=== PATIENT | male | born 1955 | race Caucasian/White ===

== ENCOUNTER 2016-10-29 07:06 | Inpatient (IN) | payer BC ==
--- NOTE | ~2016-10-29 | DS ---
Unit #: [id number] #: [id number] Patient: NILSON HALEY [id number] [address] [place], [place] [address] [id number] MR#: [id number] NAME: NILSON HALEY ROOM: 55 Age: 61 Sex: M Admission Date: 10/29/2016 : 1955 Discharge Date: 10/29/2016 Attending Physician: Lefty Kapoor M.D. Primary Care Physician: Nilson Haley M.D. 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 His course after the PCI six weeks ago was complicated by symptoms of weakness, muscle aches and pains, shortness of breath which was thought to be secondary to Brilinta and that drug was discontinued and patient started on Plavix which he had tolerated before. He was doing reasonably well. He has been active. He has been working on a regular basis. Two or three days ago in the middle of the day he had sudden onset of low retrosternal pain described as pressure and heaviness which lasted for about 5-10 minutes and was spontaneously relieved. Early this morning about 3 a.m., he was awakened from sleep with severe low retrosternal chest discomfort without any radiation to the neck, jaw, back and there was no associated diaphoresis, dyspnea, nausea, vomiting. He took one sublingual nitroglycerin without any relief and five minutes later took a second sublingual nitroglycerin and 20 minutes after the dose of nitroglycerin his pain subsided. He came to the emergency room where examination revealed no evidence of congestive heart failure. Blood pressure was normal. Electrocardiogram and cardiac enzymes showed no evidence of an evolving MS. Because of the possibility of subacute stent thrombosis or worsening of stenosis in the mid right coronary artery, he was advised to consider cardiac catheterization. While waiting for the cardiac catheterization, he had another episode of chest discomfort which prompted me to start him on intravenous nitroglycerin and he was given morphine sulfate along with Phenergan to relieve the pain. He was taken to the cardiac catheterization lab in a semi-emergent state and cardiac catheterization revealed left coronary artery and left anterior descending artery were normal. Left circumflex is a co-dominant vessel and the circumflex trunk was normal. First marginal branch was normal. Second marginal branch shows presence of two stents which are widely patent with OMID-3 distal flow and the posterior marginal branch was normal. Right coronary artery proximal half was normal and mid section revealed about 60% stenosis with mild haziness very similar to what he had six weeks ago. Because of recurrent chest pain, I performed FFR using the RADI wire and following intravenous adenosine with dilatation, FFR was 0.91. Possibility of a penetrating aortic ulcer was considered and patient had undergone CT angiography of the chest about six weeks ago and there was no abnormality detected and hence CT angiography was not repeated. Patient had no complications of cardiac catheterization. His right groin is well healed. There is no hematoma or bruit. I discussed the possible options with Dr. Haley and it was my opinion that he should be empirically treated for possible gastroesophageal reflux Unit #: [id number] #: [id number] Patient: LEANNNILSON T D disease because both the episodes of chest pain in the last week or so occurred either after a cup of black coffee or after alcoholic beverage the night before. He will be started on Protonix 40 mg daily at bedtime. Also because of the possibility of coronary or esophageal vasospasm cannot be excluded, patient will be started on amlodipine 5 mg daily at bedtime. He is again advised to try sublingual nitroglycerin if the pains continue. I will follow up with Dr. Haley in the office in four to six weeks. FINAL DIAGNOSES 1. Chest pain, cannot rule out esophageal spasm or coronary artery vasospasm. 2. Patent stents in second marginal branch of circumflex. 3. Right coronary artery 60% stenosis, had fractional flow reserve of 0.91. 4. Hyperlipidemia. 5. Hypertension. 6. Last ejection fraction 55% to 65%. MEDICATIONS His home medicines would include: 1. Amlodipine 5 mg p.o. at bedtime. 2. Protonix 40 mg p.o. at bedtime. 3. Sublingual nitroglycerin 0.4 mg p.r.n. for chest pain. 4. Benicar 10 mg daily. 5. Lexapro 20 mg daily. 6. Lorazepam 1 mg at bedtime. 7. Coreg 3.125 b.i.d. 8. Pravastatin 80 mg daily. 9. Vascepa 2 g p.o. b.i.d. 10. Multivitamins. 11. Aspirin 81 daily. 12. Plavix 75 mg daily. FOLLOWUP I will see him back in the office in six to eight weeks. Dictated by... Maggy Castellon TD: 10/30/2016 14:49 JOB #: [id number] DISCHARGE SUMMARY Page 1 of 1 X Lefty Kapoor MD X DISCHARGE SUMMARY
--- NOTE | ~2016-10-29 | EKG ---
PATIENT: NILSON NORIEGA UNIT #: [id number] Ventricular Rate: 72 BPM Atrial Rate: 72 BPM P-R Interval: 172 ms QRS Duration: 82 ms Q-T Interval: 382 ms QTC Calculation(Bezet): 418 ms P [place]: 31 degrees Calculated R [place]: 33 degrees Calculated T [place]: 27 degrees Diagnosis Line: Normal sinus rhythm Diagnosis Line: Normal ECG Diagnosis Line: When compared with ECG of 29-OCT-2016 04:00, Diagnosis Line: (unconfirmed) Diagnosis Line: No significant change was found Diagnosis Line: Confirmed by SHIRA DOUGLASS MD ([id number]) on 10/31/2016 Diagnosis Line: 8:28:25 PM INTERPRETING MD: RAFAT POWELL
--- NOTE | ~2016-10-29 | EKG ---
PATIENT: NILSON NORIEGA UNIT #: [id number] Ventricular Rate: 76 BPM Atrial Rate: 76 BPM P-R Interval: 174 ms QRS Duration: 82 ms Q-T Interval: 380 ms QTC Calculation(Bezet): 427 ms P [place]: 40 degrees Calculated R [place]: 39 degrees Calculated T [place]: 45 degrees Diagnosis Line: Normal sinus rhythm Diagnosis Line: Normal ECG Diagnosis Line: When compared with ECG of 29-OCT-2016 07:38, Diagnosis Line: (unconfirmed) Diagnosis Line: Previous ECG has undetermined rhythm, needs review Diagnosis Line: Confirmed by SHIRA DOUGLASS MD ([id number]) on 10/31/2016 Diagnosis Line: 8:28:54 PM INTERPRETING MD: RAFAT POWELL
--- NOTE | ~2016-10-29 | EKG ---
PATIENT: NILSON NORIEGA UNIT #: [id number] Ventricular Rate: 70 BPM Atrial Rate: 70 BPM P-R Interval: 152 ms QRS Duration: 78 ms Q-T Interval: 406 ms QTC Calculation(Bezet): 438 ms P [place]: 10 degrees Calculated R [place]: 23 degrees Calculated T [place]: 26 degrees Diagnosis Line: Normal sinus rhythm Diagnosis Line: Normal ECG Diagnosis Line: When compared with ECG of 08-SEP-2009 08:48, Diagnosis Line: No significant change was found Diagnosis Line: Confirmed by SHIRA DOUGLASS MD ([id number]) on 10/31/2016 Diagnosis Line: 8:27:48 PM INTERPRETING MD: RAFAT POWELL
--- NOTE | ~2016-10-29 | HP ---
Unit #: [id number] #: [id number] Patient: NILSON HALEY [id number] [address] [place], [place] [address] [id number] MR#: [id number] NAME: NILSON HALEY ROOM: 554 Age: 61 Sex: M Admission Date: 10/29/2016 : 1955 Attending Physician: Lefty Kapoor M.D. Primary Care Physician: Nilson Haley M.D. 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 He also had a 70% stenosis in the RCA. FFR was obtained, it was 0.94, it was recommended medical management. He also has hypertension, hyperlipidemia, intolerant to Brilinta, recently told he has some gallstones. He presented to the emergency room with left anterior chest wall pain. He said it felt similar to his previous angina. He took a sublingual nitroglycerin. It woke him up about 2:45 a.m. from sleep. He said the first nitroglycerin eased it off a little bit but then ended up taking a second one after about 20 minutes. He denies any diaphoresis, palpitations, dizziness. He denied that the chest pain radiated up into his neck, bilateral jaw, shoulders, arms or elbows. No abdominal or back pain. No recent cough, fever or chills. He proceeded to the emergency room due to having the recent stent and feeling that it was similar to the pain he has had before. By the time he made it to the emergency room, he said the pain had essentially eased off. In the emergency room, the patient's blood pressure was 128/73, heart rate 78, respirations 18, temperature 98.0, O2 saturation 96% on room air. His EKG did not show anything acute. His initial cardiac enzymes are negative. Patient was given an aspirin [address] Kapoor has admitted the patient for further evaluation and management. PAST MEDICAL HISTORY 1. 2010: [id number] myocardial infarction, status post PCI and stent to the obtuse marginal 2 of the circumflex. 2. 09/20/2016: Cardiac catheterization shows two-vessel coronary artery disease. Patent stent in the second marginal branch of the circumflex. He another stent placed in the distal portion of the second marginal branch. Also found 70% stenosis in the RCA. The FFR was 0.94. Medical management. LVEF of 55% to 60% per cardiac cath 09/20/2016. 3. Hypertension. 4. Hyperlipidemia. 5. Intolerant to Brilinta. 6. Intolerant to statins, is on Repatha. 7. Nonsmoker. PAST SURGICAL HISTORY 1. Status post PCI and stent x2 in the second obtuse marginal of the Unit #: [id number] #: [id number] Patient: NILSON HALEY left circumflex. 2. Tonsillectomy. HOME MEDICATIONS 1. Lexapro 20 mg p.o. daily. 2. Lorazepam 1 mg p.o. h.s. 3. Benicar 10 mg p.o. daily. 4. Plavix 75 mg p.o. daily. 5. Pravastatin 80 mg p.o. daily. 6. Repatha as directed. 7. Vascepa 2 grams p.o. b.i.d. 8. Multivitamin one tablet daily. 9. Aspirin 81 mg p.o. daily. 10. Carvedilol 3.125 mg p.o. b.i.d. ALLERGIES 1. Sulfonamides. 2. Ticagrelor. 3. Brilinta. SOCIAL HISTORY No tobacco, alcohol, or illicit drug abuse. FAMILY HISTORY Father had coronary artery disease. REVIEW OF SYSTEMS CONSTITUTIONAL: Denies fever or chills. No recent weight gain or weight loss. HEENT: Denies headache or dizziness. No vision or hearing changes. No lymphadenopathy, thyromegaly, or difficulty swallowing. CARDIOVASCULAR: Chest pain present. Denies palpitations. Denies increased lower extremity edema. PULMONARY: Denies shortness of breath. Denies paroxysmal nocturnal dyspnea or orthopnea. GASTROINTESTINAL: Denies nausea, vomiting, diarrhea or abdominal pain. NEUROLOGIC: No focal weaknesses. PHYSICAL EXAMINATION VITAL SIGNS: Blood pressure 121/72, heart rate 68, respirations 16, temperature 98.0, O2 saturations 99% on room air. GENERAL: Mr. Haley is a 61-year-old white male in no acute respiratory distress. He is awake, alert, and oriented. NECK: Trachea midline. No thyromegaly, lymphadenopathy. Normal carotid upstrokes. No jugular venous distention. HEART: S1, S2. Regular rate and rhythm. No clicks, murmurs, or rubs. LUNGS: Bilaterally clear throughout. No wheezes, rales, or rhonchi. ABDOMEN: Soft, nontender. Positive bowel sounds are present. No hepatosplenomegaly. EXTREMITIES: Pedal pulses are palpable. No pedal edema. DIAGNOSTIC STUDIES LABORATORY: Glucose 102, BUN 16, creatinine 1.1, EGFR is 71.6, sodium 139, potassium 3.4, chloride 105, CO2 is 27, calcium 8.7, total protein 6.8, albumin 4.3, total bilirubin 0.8, AST 238, ALT 117, alkaline phosphatase 61. WBC 6.8, hemoglobin 13.6, hematocrit 40.2, platelets 211. Initial cardiac enzymes CKMB less than 1.0, troponin less than 0.05; CKMB less than 1.0, troponin less than 0.05. INR 1.0. Unit #: [id number] #: [id number] Patient: NILSON HALEY IMAGING: Chest x-ray shows nothing acute, normal. CARDIOVASCULAR: EKG shows normal sinus rhythm with ventricular rate 70 beats per minute. Q waves in V1 and and probably lead III. Low voltage in the inferior leads. IMPRESSION 1. Chest pain, unstable angina. 2. History of coronary artery disease, recent PCI and stent to the second marginal branch distal portion on 09/20/2016. 3. Hypertension. 4. Hyperlipidemia. 5. Intolerant to Brilinta. 6. Intolerant to statin on Repatha outpatient. 7. Nonsmoker. 8. Hypokalemia. 9. Elevated liver function tests. 10. Recently diagnosed with gallbladder disease with gallstones. PLAN 1. Dr. Kapoor examined and evaluated the patient. With his symptoms suggestive of unstable angina and his history of having coronary artery disease and had a stenosis in the RCA that was not stented, he feels he should have a heart catheterization to further evaluate. 2. Dr. Kapoor ordered the patient to get 5000 units of heparin IV along with aspirin 325. The patient had recurrent pain while he was in the emergency room and had to be started on nitroglycerin drip per protocol to titrate for chest pain. 3. Dr. Kapoor added potassium to his IV fluids. 4. Patient also was ordered to get a Plavix before his procedure. 5. Further recommendations pending per Dr. Kapoor after his heart catheterization. 6. On exam, there is no signs or symptoms of acute congestive heart failure. 7. Dr. Kapoor wants the CT angio of his chest report from [facility] that was done 6 weeks ago to be made available. Dictated by Elizabeth Peters A.P.R.N. for Lefty Kapoor M.D. RHIANNON/shama TD: 10/29/2016 17:04 JOB #: [id number] Unit #: [id number] #: [id number] Patient: NILSON HALEY Juan Carlos Kaufman HISTORY AND PHYSICAL Page 1 of 1 X Elizabeth Peters APRN HISTORY AND PHYSICAL
--- NOTE | ~2016-10-29 | EKG ---
PATIENT: NILSON NORIEGA UNIT #: [id number] Ventricular Rate: 63 BPM Atrial Rate: 63 BPM P-R Interval: 174 ms QRS Duration: 80 ms Q-T Interval: 398 ms QTC Calculation(Bezet): 407 ms P [place]: 33 degrees Calculated R [place]: 38 degrees Calculated T [place]: 30 degrees Diagnosis Line: Normal sinus rhythm Diagnosis Line: Normal ECG Diagnosis Line: When compared with ECG of 29-OCT-2016 08:22, Diagnosis Line: (unconfirmed) Diagnosis Line: No significant change was found Diagnosis Line: Confirmed by SHIRA DOUGLASS MD ([id number]) on 10/31/2016 Diagnosis Line: 8:30:17 PM INTERPRETING MD: RAFAT POWELL
--- NOTE | ~2016-10-29 | CR72 ---
[facility] A Service of [facility] RADIOLOGY TEXT RESULTS PATIENT: NILSON HALEY LOCATION: [place] [address] : [birth year] UNIT #: [id number] AGE: [address]: Lefty Kapoor MD SEX: M ORDER DR: [id number] [facility] [address]. [place], [place] [address] [id number] E MR#: [id number] Acc #: [id number] NAME: NILSON HALEY : 1955 SEX: M STUDY DATE/TIME: 10/29/2016 4:52 UNIT: DANDY ROOM: STUDY DESCRIPTION: CR Chest Single View Portable Attending Physician: Cl Sanchez M.D. Ordering Physician: Cl Sanchez M.D. Primary Care Physician: Nilson Haely M.D. MEDICAL IMAGING REPORT This report is preliminary unless electronic signature is present EXAM AP portable chest date 10/29/2016 HISTORY Onset chest pain today. COMPARISON AP portable chest 09/08/2009. FINDINGS A single AP portable view of the chest shows both lungs to be clear. The heart is normal in size. The mediastinal contour is normal. No significant bone abnormalities are seen. IMPRESSION Normal portable chest. Dictated by... Mimi Taylor M.D. THIS IS AN ELECTRONICALLY VERIFIED REPORT Mimi Taylor M.D. at 11/03/2016 4:12 PM Remy/vasu TD: 10/29/2016 09:20 JOB #: [id number] MEDICAL IMAGING REPORT Page 1 of 1 COPY
[2016-10-29 04:39] LABS: POC - CKMB <1.0 ng/mL (0.0-7.9); POC - TROPONIN <0.05 ng/mL (<=0.05)
[2016-10-29 05:09] LABS: BASOPHIL% 0.6 % (0-2.5); DIFF IND NO; EOSINOPHIL# 0.3 X10e3 (0-0.7); EOSINOPHIL% 4.2 % (0.0-7.0); HEMATOCRIT 40.2 % (38.0-50.0); HEMOGLOBIN 13.6 gm/dL (13.0-16.0); LYMPHOCYTE# 2.1 X10e3 (1.0-3.5); LYMPHOCYTE% 30.8 % (17.0-45.0); MEAN CELL VOLUME 94.6 FL (83-96); MEAN CORPUSCULAR HGB CONC 33.9 g/dL (30-36); MEAN PLATELET VOLUME 8.5 FL (6.5-11.5); MONOCYTE# 0.5 X10e3 (0-1.0); MONOCYTE% 7.1 % (3.0-12.0); NEUTROPHIL# 3.9 X10e3 (1.5-7.1); NEUTROPHIL% 57.3 % (40-75); PLATELET COUNT 211 X10e3 (140-420); RED BLOOD COUNT 4.25 X10e (3.90-5.60); WHITE BLOOD COUNT 6.8 X10e3 (4.0-10.5)
[2016-10-29 05:24] LABS: PARTIAL THROMBOPLASTIN TIME 23.9 SECONDS (23.5-31.3)
[2016-10-29 05:42] LABS: ALBUMIN SERUM 4.3 g/dL (3.5-5.0); BILIRUBIN, DIRECT 0.3 mg/dL (0.0-0.2); BILIRUBIN,INDIRECT 0.5 mg/dL (0.0-0.9); BILIRUBIN,TOTAL 0.8 mg/dL (0.2-2.0); BUN/CREATININE RATIO 14.54; CALCIUM SERUM 8.7 mg/dL (8.4-10.2); CREATININE SERUM 1.1 mg/dL (0.6-1.4); GLOM FILT RATE Estimated 71.6 mL/min (>60); POTASSIUM 3.4 mmol/L (3.5-5.1); PROTEIN TOTAL SERUM 6.8 g/dL (6.0-8.3)
[2016-10-29 06:31] LABS: POC - CKMB <1.0 ng/mL (0.0-7.9); POC - TROPONIN <0.05 ng/mL (<=0.05)
[~2016-10-29 07:06] MED LIST: ASPIRIN PO; ASPIRIN81 M2 PO; ATIVAN PO; BENICAR20 MG PO; CERTAGEN; COLACE PO; COREG3.125 MG PO; LEXAPRO PO; MULTIVITAMINS1 EAC3; PHENERGAN PO; PLAVIX300 MG PO; PRAVASTATIN SOD80 MG PO; PROCTOCORT PR; REPATHA SY140 MG/1 M; VASCEPA1 GM PO
[2016-10-29] MEDS ORDERED: PROTONIX PO (17:19)
[2016-10-29] MEDS ORDERED: AMLODIPINE BESYL5 MG PO (17:22)
== END 2016-10-29 18:02 | disposition home or self-care (01) | DRG 287 ==
LOC: CED 07:06 → SEDOF 07:50 → C5B 11:04
PROVIDERS: Emergency Medicine
PROC: 4A023N7 Measurement of Cardiac Sampling and Pressure, Left Heart, Percutaneous Approach (ICD-10-PCS; principal; 2016-10-29)
PROC: B211YZZ Fluoroscopy of Multiple Coronary Arteries using Other Contrast (ICD-10-PCS; 2016-10-29)
PROC: B215YZZ Fluoroscopy of Left Heart using Other Contrast (ICD-10-PCS; 2016-10-29)
PROC: 4A033BC Measurement of Arterial Pressure, Coronary, Percutaneous Approach (ICD-10-PCS; 2016-10-29)
DX: I25.111 Atherosclerotic heart disease of native coronary artery with angina pectoris with documented spasm (principal); I10 Essential (primary) hypertension; K22.4 Dyskinesia of esophagus; Z95.5 Presence of coronary angioplasty implant and graft; Z87.891 Personal history of nicotine dependence; I25.2 Old myocardial infarction; Z88.2 Allergy status to sulfonamides; Z88.8 Allergy status to other drugs, medicaments and biological substances; E87.6 Hypokalemia; R94.8 Abnormal results of function studies of other organs and systems
CPT/HCPCS: 71010; 80048; 80076; 82553; 84484; 85025; 85347; 85610; 85730; 93005; 99291; C1769; C1887; C1894; C9113; J0153; J0461; J1644; J2250; J2270; J2405; J2550; J3010